=== PATIENT | female | born 1955 | race Caucasian/White ===

== ENCOUNTER 2017-10-10 10:37 | Emergency (ER) | payer OTHER ==
[~2017-10-10] VITALS: Ht 152.4 cm; Wt 68.0 kg
== END 2017-10-10 14:44 | disposition home or self-care (01) ==
LOC: ER 10:37
DX: G89.11 Acute pain due to trauma (principal); M25.561 Pain in right knee; G44.309 Post-traumatic headache, unspecified, not intractable